=== PATIENT | female | born 1965 | race Caucasian/White ===

== ENCOUNTER 2021-06-16 06:08 | Day surgery (SDC) | payer OTHER, SELFPAY ==
[~2021-06-16] VITALS: Ht 167.6 cm; Wt 59.0 kg
[2021-06-16 07:48] LABS: BASOPHILS % (AUTO) 0.8 % (0.0-2.0); EOSINOPHILS % (AUTO) 0.7 % (0.0-4.0); HEMATOCRIT 43.1 % (36-48); HEMOGLOBIN 14.6 g/dL (12.0-16.0); LYMPHOCYTES # (AUTO) 1.3 K/uL (2.5-16.5); LYMPHOCYTES % (AUTO) 21.9 % (20.5-51.1); MEAN CORPUSCULAR HEMOGLOBIN 32 pg (27-31); MEAN CORPUSCULAR HGB CONC 34 g/dL (33-37); MEAN CORPUSCULAR VOLUME 95.5 fL (80-94); MONOCYTES # (AUTO) 0.4 K/uL (0.8-1.0); MONOCYTES % (AUTO) 6.9 % (1.7-9.3); NEUTROPHILS # (AUTO) 4.1 K/uL (1.8-7.7); NEUTROPHILS % (AUTO) 69.7 % (42.2-75.2); PLATELET COUNT (AUTO) 176 K/uL (140-450); RED BLOOD CELL COUNT(AUTO) 4.51 MIL/uL (4.20-5.40); RED CELL DISTRIBUTION WIDTH 12.8 % (11.6-13.7); WHITE BLOOD COUNT (AUTO) 5.8 K/uL (4.8-10.8)
[2021-06-16 07:59] LABS: PROTHROMBIN TIME 10.2 secs (10.8-13.4)
[2021-06-16] MEDS ORDERED: LIDOCAINE MPF 2% 100 MG/5 ML VIAL INJ ONE (09:53)
[2021-06-16] MEDS ORDERED: LIDOCAINE 2% 1000 MG/50 ML VIAL INJ ONE (09:58)
[2021-06-16] MEDS ORDERED: fentaNYL citrate 0.05 MG/ML VIAL ONE (10:10)
== END 2021-06-16 11:41 | disposition home or self-care (01) ==
LOC: MDS 06:08 → MMU 06:09 → MDS 11:41
PROVIDERS: ATTEND Internal Medicine Gastroenterology
DX: R94.5 Abnormal results of liver function studies (principal); E11.9 Type 2 diabetes mellitus without complications; I10 Essential (primary) hypertension; E78.5 Hyperlipidemia, unspecified; Z90.710 Acquired absence of both cervix and uterus; Z79.4 Long term (current) use of insulin; Z79.01 Long term (current) use of anticoagulants; Z79.899 Other long term (current) drug therapy; Z20.822 Contact with and (suspected) exposure to COVID-19
CPT/HCPCS: 36415; 47000; 76942; 82948; 85025; 85610; 85730; 87426; J2001; Q0092; 88307; 88313; J3010

== ENCOUNTER 2024-05-13 06:24 | Day surgery (SDC) | payer OTHER ==
[~2024-05-13] VITALS: Ht 167.6 cm; Wt 63.5 kg
[2024-05-13] MEDS ORDERED: MIDAZOLAM 5 MG/5 ML VIAL ONE (08:10)
[2024-05-13] MEDS ORDERED: fentaNYL citrate 0.05 MG/ML VIAL ONE (08:11)
[2024-05-13] MEDS ORDERED: LIDOCAINE 2% 100 MG/5 ML UJET TP ONE ×2 (08:11→09:10)
[2024-05-13] MEDS: MIDAZOLAM 2 MG/2 ML VIAL IVP ONE (08:23)
[2024-05-13] MEDS: fentaNYL citrate 0.05 MG/ML VIAL IVP ONE (08:24)
[2024-05-13] MEDS ORDERED: ONDANSETRON 4 MG TAB PO PRN ×2 (09:15)
== END 2024-05-13 09:50 | disposition home or self-care (01) ==
LOC: MDS 06:24 → MMU 06:44 → MDS 09:50
PROVIDERS: ATTEND Internal Medicine Gastroenterology
DX: K64.1 Second degree hemorrhoids (principal); K21.9 Gastro-esophageal reflux disease without esophagitis; K62.5 Hemorrhage of anus and rectum; I10 Essential (primary) hypertension; E11.9 Type 2 diabetes mellitus without complications; E78.5 Hyperlipidemia, unspecified; Z80.0 Family history of malignant neoplasm of digestive organs; Z79.899 Other long term (current) drug therapy; Z98.890 Other specified postprocedural states
CPT/HCPCS: 43235; 45398; 82948; J2250; J3010